=== PATIENT | female | born 1965 | race African-American/Black ===

== ENCOUNTER 2021-05-12 14:17 | Emergency (ER) | payer OTHER ==
[2021-05-12 14:37] VITALS: BP 141/91; PULSE 82; TEMP 98.2; BMI 26.4
[2021-05-12] MEDS ORDERED: IBUPROFEN 600 MG TABLET (FP) PO ONE ×2 (15:33→16:00)
== END 2021-05-12 16:27 | disposition home or self-care (01) ==
LOC: FER 14:17
DX: M54.50 Low back pain, unspecified (principal); W01.0XXA Fall on same level from slipping, tripping and stumbling without subsequent striking against object, initial encounter
CPT/HCPCS: 72070-TC-FY; 72100-TC-FY; 72170-TC-FY; 99285-25